=== PATIENT | female | born 2000 | race Hispanic/Latino ===

== ENCOUNTER 2021-08-02 23:01 | Emergency (ER) | payer OTHER, SELFPAY ==
[2021-08-03] MEDS ORDERED: AMOX/K CLAV 875 MG TAB ONE (00:25)
[2021-08-03] MEDS ORDERED: ACETAMINOPHEN 500 MG TAB ONE (00:25)
--- NOTE | 2021-08-03 00:49 | EDPHYS ---
Physician Documentation [facility] Name: Palma Son Age: 21 yrs Sex: Female : 2000 Arrival Date: 08/02/2021 Time: 23:10 Bed 9 Private MD: ED Physician Yann Chase HPI: 08/03 00:10 This 21 yrs old Female presents to ER via Ambulatory with complaints of Sore mh7 Throat, Ear Pain, Cough. 00:11 The patient presents with pain, moderate. The complaints affect the right ear. Onset: mh7 The symptoms/episode began/occurred 5 day(s) ago. Modifying factors: The symptoms are alleviated by nothing, the symptoms are aggravated by loud noise. Associated signs and symptoms: Pertinent positives: sore throat, cough, rhinorrhea, Pertinent negatives: fever, lightheadedness, nausea, sinus trouble, shortness of breath, tinnitus, vertigo, vomiting. Severity of symptoms: At their worst the symptoms were moderate 3 day(s) ago, in the emergency department the symptoms have improved mildly. 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 - Social history:: Smoking status: Patient denies any tobacco usage or history of. ROS: 08/03 00:11 Constitutional: Negative for fever, chills, and weight loss, Eyes: Negative for injury, mh7 pain, redness, and discharge, Neck: Negative for injury, pain, and swelling, Cardiovascular: Negative for chest pain, palpitations, and edema, Respiratory: Negative for shortness of breath, cough, wheezing, and pleuritic chest pain, Abdomen/GI: Negative for abdominal pain, nausea, vomiting, diarrhea, and constipation, Back: Negative for injury and pain, : Negative for injury, bleeding, discharge, and swelling, MS/Extremity: Negative for injury and deformity, Skin: Negative for injury, rash, and discoloration, Neuro: Negative for headache, weakness, numbness, tingling, and seizure, Psych: Negative for depression, anxiety, suicide ideation, homicidal ideation, and hallucinations, Allergy/Immunology: Negative for hives, rash, and allergies, Endocrine: Negative for neck swelling, polydipsia, polyuria, polyphagia, and marked weight changes, Hematologic/Lymphatic: Negative for swollen nodes, abnormal bleeding, and unusual bruising. Exam: 00:11 Constitutional: This is a well developed, well nourished patient who is awake, alert, mh7 and in no acute distress. Head/Face: Normocephalic, atraumatic. Eyes: Pupils equal round and reactive to light, extra-ocular motions intact. Lids and lashes normal. Conjunctiva and sclera are non-icteric and not injected. Cornea within normal limits. Periorbital areas with no swelling, redness, or edema. 00:11 Neck: Trachea midline, no thyromegaly or masses palpated, and no cervical lymphadenopathy. Supple, full range of motion without nuchal rigidity, or vertebral point tenderness. No Meningismus. Chest/axilla: Normal chest wall appearance and motion. Nontender with no deformity. No lesions are appreciated. Cardiovascular: Regular rate and rhythm with a normal S1 and S2. No gallops, murmurs, or rubs. Normal PMI, no JVD. No pulse deficits. Respiratory: Lungs have equal breath sounds bilaterally, clear to auscultation and percussion. No rales, rhonchi or wheezes noted. No increased work of breathing, no retractions or nasal flaring. Abdomen/GI: Soft, non-tender, with normal bowel sounds. No distension or tympany. No guarding or rebound. No evidence of tenderness throughout. Back: No spinal tenderness. No costovertebral tenderness. Full range of motion. Skin: Warm, dry with normal turgor. Normal color with no rashes, no lesions, and no evidence of cellulitis. MS/ Extremity: Pulses equal, no cyanosis. Neurovascular intact. Full, normal range of motion. Neuro: Awake and alert, GCS 15, oriented to person, place, time, and situation. Cranial nerves II-XII grossly intact. Motor strength 5/5 in all extremities. Sensory grossly intact. Cerebellar exam normal. Normal gait. Psych: Awake, alert, with orientation to person, place and time. Behavior, mood, and affect are within normal limits. 00:11 ENT: External ear(s): are unremarkable, Ear canal(s): are normal, clear, TM's: bulging, on the right, dullness, on the right, erythema, that is moderate, on the right, fluid levels, is not appreciated, hemotympanum, is not appreciated, bilaterally, loss of bony landmarks, is not appreciated, rupture, is not appreciated, bilaterally, Examination of the other ear shows no obvious abnormality, Nose: is normal, Mouth: is normal, Posterior pharynx: is normal, airway is patent, Dental exam: normal, Voice: is normal. Vital Signs: 08/02 23:41 BP 115 / 73; Pulse 60; Resp 18; Temp 98.5(O); Pulse Ox 100% on R/A; Weight 108.86 kg lp1 (R); Height 5 ft. 5 in. (165.10 cm); Pain 10/10; 23:52 BP 112 / 72; Pulse 53; Resp 16; Temp 98.3; Pulse Ox 100% ; Pain 10/10; eb1 23:41 Body Mass Index 39.94 (108.86 kg, 165.10 cm) lp1 MDM: 08/03 00:46 Differential diagnosis: otitis media, otitis externa, ruptured TM, acute otalgia, mh7 cerumen impaction, barotrauma , serotympanum, Pharyngitis. Data reviewed: vital signs, nurses notes. Data interpreted: Pulse oximetry: on room air is 100 %. Interpretation: normal. Counseling: I had a detailed discussion with the patient and/or guardian regarding: the historical points, exam findings, and any diagnostic results supporting the discharge/admit diagnosis, the need for outpatient follow up, to return to the emergency department if symptoms worsen or persist or if there are any questions or concerns that arise at home. Response to treatment: the patient's symptoms have markedly improved after treatment. 00:48 Patient medically screened. [facility] Administered Medications: 00:24 Drug: Augmentin (Amoxicillin-Clavulanate) 875 mg Route: PO; eb1 00:24 Drug: Tylenol 1000 mg Route: PO; eb1 Disposition Summary: 08/03/21 00:48 Discharge Ordered Location: Home [facility] Problem: new 7 Symptoms: have improved mh7 Condition: Stable mh7 Diagnosis - Otitis media, unspecified, right ear [facility] Followup: [facility] - With: Private Physician - When: 1 - 2 days - Reason: Worsening of condition, Recheck today's complaints, Continuance of care, Re-evaluation by your physician Followup: [facility] - With: Debby Hernandez MD - When: 2 - 3 days - Reason: Worsening of condition, Recheck today's complaints Discharge Instructions: - Discharge Summary Sheet [facility] - Otitis Media, Adult, [id number] [facility] Forms: - Medication Reconciliation Form [facility] - Thank You Letter [facility] - Antibiotic Education [facility] - Prescription Opioid Use [facility] Prescriptions: - Augmentin 875-125 mg Oral Tablet - take 1 tablet by ORAL route every 12 hours for 10 days; 20 tablet; Refills: 0, [facility] Product Selection Permitted - Ibuprofen 800 mg Oral Tablet - take 1 tablet by ORAL route every 8 hours As needed take with food; 15 tablet; [facility] Refills: 0, Product Selection Permitted Signatures: Mar Malcolm RN RN lp1 Gayathri Zazueta RN RN eb1 Yann Chase MD MD [facility]
--- NOTE | 2021-08-03 00:49 | ER ---
Nurse's Notes [facility] Name: Palma Son Age: 21 yrs Sex: Female : 2000 Arrival Date: 08/02/2021 Time: 23:10 Bed 9 Private MD: Diagnosis: Otitis media, unspecified, right ear Presentation: 08/02 23:38 Chief complaint: Patient states: Bilateral ear pain, runny nose, congestion, sore lp1 throat since Tuesday; Reports throat feeling swollen. Coronavirus screen: At this time, the client does not indicate any symptoms associated with coronavirus-19. Ebola Screen: No symptoms or risks identified at this time. Risk Assessment: Do you want to hurt yourself or someone else? Patient reports no desire to harm self or others. Onset of symptoms was August 02, 2021. 23:38 Method Of Arrival: Ambulatory lp1 23:38 Acuity: JAMIE 4 lp1 23:41 Initial Sepsis Screen: Does the patient meet any 2 criteria? No. Patient's initial lp1 sepsis screen is negative. Does the patient have a suspected source of infection? No. Patient's initial sepsis screen is negative. Triage Assessment: 23:53 General: Appears in no apparent distress. uncomfortable, Behavior is calm, cooperative, eb1 appropriate for age. 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 - Social history:: Smoking status: Patient denies any tobacco usage or history of. Screenin:53 Abuse screen: Denies threats or abuse. Denies injuries from another. Nutritional eb1 screening: No deficits noted. Tuberculosis screening: No symptoms or risk factors identified. Fall Risk None identified. Assessment: 23:50 General: Appears in no apparent distress. uncomfortable. Pain: Complains of pain in eb1 left aspect of posterior pharynx and right aspect of posterior pharynx Pain radiates to right ear and left ear Pain currently is 10 out of 10 on a pain scale. Pain began 2-3 days ago. Aggravated by eating, drinking. Neuro: No deficits noted. Cardiovascular: No deficits noted. Respiratory: No deficits noted. Reports Patient reports chest congestion Airway is patent Respiratory effort is even, unlabored, Breath sounds are clear bilaterally. GI: No deficits noted. No signs and/or symptoms were reported involving the gastrointestinal system. : No deficits noted. No signs and/or symptoms were reported regarding the genitourinary system. EENT: Throat is reddened bilaterally. EENT: Reports difficulty swallowing since Tuesday. Derm: No deficits noted. No signs and/or symptoms reported regarding the dermatologic system. Musculoskeletal: No deficits noted. No signs and/or symptoms reported regarding the musculoskeletal system. Vital Signs: 23:41 BP 115 / 73; Pulse 60; Resp 18; Temp 98.5(O); Pulse Ox 100% on R/A; Weight 108.86 kg lp1 (R); Height 5 ft. 5 in. (165.10 cm); Pain 10/10; 23:52 BP 112 / 72; Pulse 53; Resp 16; Temp 98.3; Pulse Ox 100% ; Pain 10/10; eb1 23:41 Body Mass Index 39.94 (108.86 kg, 165.10 cm) lp1 ED Course: 23:10 Patient arrived in ED. kz 23:39 Triage completed. lp1 23:40 Arm band placed on left wrist. lp1 23:48 Yann Chase MD is Attending Physician. mh7 23:53 Patient has correct armband on for positive identification. Door closed. Noise eb1 minimized. 08/03 00:47 Debby Hernandez MD is Referral Physician. [facility] 01:07 No provider procedures requiring assistance completed. eb1 01:07 Patient did not have IV access during this emergency room visit. eb1 Administered Medications: 00:24 Drug: Augmentin (Amoxicillin-Clavulanate) 875 mg Route: PO; eb1 00:24 Drug: Tylenol 1000 mg Route: PO; eb1 Outcome: 00:48 Discharge ordered by . 7 01:07 Discharged to home ambulatory. eb1 01:07 Condition: improved 01:07 Discharge instructions given to patient, family, Instructed on discharge instructions, follow up and referral plans. Demonstrated understanding of instructions, follow-up care, medications, Prescriptions given X 2. 01:07 Patient left the ED. eb1 Signatures: Mar Malcolm RN RN lp1 Gayathri Zazueta RN RN eb1 Yann Chase MD MD mh7 Hina Santos
[2021-08-03 04:41] VITALS: O2SAT 100
[2021-08-03 04:42] VITALS: BP 112/72; TEMP 98.3
== END 2021-08-03 01:07 | disposition home or self-care (01) ==
LOC: ER 23:01
DX: H66.91 Otitis media, unspecified, right ear (principal)
CPT/HCPCS: 99283